=== PATIENT | female | born 1960 | race Hispanic/Latino ===

== ENCOUNTER 2024-04-22 10:09 | Emergency (ER) | payer OTHER ==
[~2024-04-22] VITALS: Ht 157.5 cm; Wt 56.7 kg
--- NOTE | 2024-04-22 10:16 | ERN ---
ED Note History of Present Illness Stated Complaint: DIZZINESS Chief Complaint: Dizzy/Light Headed Time Seen by MD: 10:13 Dictation: PATIENT IS A 63-YEAR-OLD FEMALE COMING IN TODAY WITH INTERMITTENT GENERALIZED HEADACHE WITH DIZZINESS ONSET ONE MONTH PRIOR TO ARRIVAL. NO FEVER NO CHILLS NO NAUSEA VOMITING. SHE ALSO STATES SHE HAS HAD BLURRED VISION INTERMITTENTLY HOWEVER SAW CIRCLE EDGER YESTERDAY WHO DILATED HER EYES AND THEN RECOMMENDED SHE GET A CT SCAN OF THE HEAD. NIH IS 0 AT THIS TIME. STATES THE PRIMARY CARE DOCTOR HAS DONE NOTHING ABOUT THE DIZZINESS OR HEADACHES. Allergies: Coded Allergies: No Known Drug Allergies (Unverified Allergy, Unknown, 04/22/24) Past Medical History History: Not Applicable RN Note Reviewed/Agreed w/PFSH: Yes Review of System Dictation CONSTITUTIONAL: NEGATIVE EXCEPT FOR HPI HEAD/FACE: NEGATIVE EXCEPT FOR HPI EENT: NEGATIVE EXCEPT FOR HPI RESPIRATORY: NEGATIVE EXCEPT FOR HPI GASTROINTESTINAL/ABDOMINAL: NEGATIVE EXCEPT FOR HPI GENITOURINARY: NEGATIVE EXCEPT FOR HPI MUSCULOSKELETAL: NEGATIVE EXCEPT FOR HPI INTEGUMENTARY: NEGATIVE EXCEPT FOR HPI NEUROLOGICAL/PSYCH: NEGATIVE EXCEPT FOR HPI DIZZINESS/HEADACHE HEMATOLOGIC/LYMPHATIC: NEGATIVE EXCEPT FOR HPI ALL SYSTEMS NEGATIVE, EXCEPT NOTED ABOVE. 13 POINT REVIEW OF SYSTEMS ASSESSED AND ALL NEGATIVE EXCEPT FOR ABOVE. Initial Vital Sign VS Vital Signs Date Time Temp Pulse Resp B/P (MAP) Pulse Ox O2 Delivery O2 Flow Rate FiO2 04/22/24 10:11 98.4 111 18 167/81 100 Room Air 04/22/24 12:10 0 21 Physical Exam Dictation VITAL SIGNS REVIEWED GENERAL APPEARANCE: ALERT, ORIENTED X 3, NO ACUTE DISTRESS, WELL DEVELOPED, NOURISHED. HEAD AND FACE: NON-TRAUMATIC. EYES: PERRL, PINK CONJUNCTIVAS, EYELID NO TRAUMA, ANTERIOR CHAMBER WITH ARCUS SENILIS. RIGHT VISUAL FIELD CUT, EOMS ARE INTACT EARS: PINNAS INTACT AND NO SIGNS OF TRAUMA OR ERYTHEMA EAR CANALS CLEAR AND NO DISCHARGE TM NO ERYTHEMA NOSE: NO DISCHARGE, NO BLEEDING. OROPHARYNX: MOUTH NORMAL, TONGUE PINK, PHARYNX CLEAR,NO ERYTHEMA, TONSILS NO EXUDATES, NO ABSCESSES NOTED, MUCOUS MEMBRANE MOIST NECK: SUPPLE, NON-TENDER, NO THYROMEGALY, NO MASSES, NO JVD, NO BRUITS BREAST:DEFERRED CHEST:NO TENDERNESS, NO CREPITUS, NO PARADOXICAL MOVEMENT, NO RETRACTIONS LUNGS:CLEAR, WELL-VENTILATED, SYMMETRIC, NO RALES, NO WHEEZING, NO RHONCHI, NO STRIDOR, GOOD BREATH SOUNDS BILATERALLY HEART: REGULAR RATE, REGULAR RHYTHM, NO MURMUR, NO GALLOPS VASCULAR: NO PERIPHERAL EDEMA, ABDOMEN: SOFT, POSITIVE BOWEL SOUNDS, NONDISTENDED, NO GUARDING, NONTENDER, NO REBOUND, NO MASSES NO HEPATOMEGALY, NO SPLENOMEGALY, NO MCKENNA'S SIGN, NO HERNIAS. RECTAL: DEFERRED GENITAL: DEFERRED NEUROLOGICAL: NORMAL SPEECH, MOTOR FUNCTION INTACT, SENSORY FUNCTION INTACT NIH IS 1 MUSCULOSKELETAL: NECK NONTENDER, FULL RANGE OF MOTION, BACK NONTENDER, FULL RANGE OF MOTION, EXTREMITIES: NONTENDER, FULL RANGE OF MOTION SKIN: COLOR PINK, DRY, NO TURGOR, NO RASH, NO LACERATIONS, NO ABRASIONS, NO CONTUSIONS. LYMPHATIC: DEFERRED Results (Laboratory/Radiology) Laboratory/Radiology Laboratory Tests Test 04/22/24 11:00 White Blood Count 6.9 K/uL (4.8-10.8) Red Blood Count 4.06 MIL/uL (4.00-5.50) Hemoglobin 12.6 g/dL (12.0-16.0) Hematocrit 37.1 % (36-48) Mean Corpuscular Volume 91.4 fL (79-99) Mean Corpuscular Hemoglobin 31.0 pg (27.0-33.0) Mean Corpuscular Hemoglobin Concent 34.0 g/dL (32.0-36.0) Red Cell Distribution Width 12.9 % (11.0-15.5) Platelet Count 345 K/uL (130-400) Mean Platelet Volume 11.5 fL (7.5-10.5) H Immature Granulocyte % (Auto) 0.1 % (0-1) Neutrophils (%) (Auto) 72.7 % (40.0-77.0) Lymphocytes (%) (Auto) 14.4 % (21.0-51.0) L Monocytes (%) (Auto) 5.8 % (3.0-13.0) Eosinophils (%) (Auto) 5.8 % (0.0-8.0) Basophils (%) (Auto) 1.2 % (0.0-5.0) Neutrophils # (Auto) 5.0 K/uL (1.8-7.7) Lymphocytes # (Auto) 1.0 K/uL (1.0-4.8) Monocytes # (Auto) 0.4 K/uL (0.1-1.0) Eosinophils # (Auto) 0.40 K/uL (0.00-0.70) Basophils # (Auto) 0.08 K/uL (0.00-0.20) Absolute Immature Granulocyte (auto 0.01 K/uL (0-1) Nucleated Red Blood Cells 0.0 % (0.0-0.19) Sodium Level 143 mmol/L (136-145) Potassium Level 3.6 mmol/L (3.5-5.1) Chloride Level 106 mmol/L (101-111) Carbon Dioxide Level 30 mmol/L (21-32) Blood Urea Nitrogen 16 mg/dL (7-18) Creatinine 0.8 mg/dL (0.5-1.0) Glomerular Filtration Rate Calc 82 mL/min (>90) Random Glucose 189 mg/dL (70-105) H Total Calcium 9.6 mg/dL (8.5-10.1) Magnesium Level 1.40 mg/dL (1.80-2.40) L Troponin I High Sensitivity 10 ng/L (4-50) CT HEAD/BRAIN W/O CONTRAST HISTORY: Headaches COMPARISON: None TECHNIQUE: Multiple sequential axial images of the head were obtained from the base of the skull through vertex. Patient was not given contrast through intravenous route. FINDINGS: The ventricles and extraventricular CSF spaces are dilated consistent with cerebral atrophy. Nonspecific white matter changes seen. There is subacute/chronic left occipital lobe infarct. There is no midline shift, mass effect or herniation. No acute intracranial bleed is seen. Visualized portion of the paranasal sinuses are grossly within normal limits. IMPRESSION: 1. No acute intracranial bleed is seen. 2. Atrophy with white matter changes. Subacute/chronic left occipital lobe infarct. Report was given to the emergency room physician. TECHNIQUE: CT angiography of the neck was performed. The study was performed using angiographic technique with maximum intensity projection reconstruction images. FINDINGS: There are degenerative changes of the cervical spine. Parapharyngeal fat planes are preserved bilaterally. The airway is patent. Normal enhancement of the thyroid gland is noted. Visualized portion of the lung apices are unremarkable. The common, internal and external carotid arteries are visualized. 40-60% stenosis in the bilateral internal carotid arteries with left worse than right. Both vertebral arteries are seen with antegrade flow. IMPRESSION: CTA Neck 1. Atherosclerotic disease. 40-60% stenosis in the bilateral internal carotid arteries with left worse than right. Labs Reviewed?: Yes EKG Comment: EKG SINUS RHYTHM/HEART RATE 87/AXIS NORMAL/NONSPECIFIC ST CHANGES IN ANTEROLATERAL LEADS ED Course ED Course Orders Procedure Category Date Status Time Ct Head/Brain W/O CT 04/22/24 Resulted Contrast 10:14 Acetaminophen 500mg PHA 04/22/24 Complete Tab (Tylenol 500mg T 10:30 Cbc With Differential LAB 04/22/24 Complete 10:35 Chest 1vw RAD 04/22/24 Resulted 10:35 12 Lead Ekg Tracing- EKG 04/22/24 Resulted Technical 10:35 Magnesium LAB 04/22/24 Complete 10:35 Troponin I High LAB 04/22/24 Complete Sensitivity 10:35 Basic Metabolic Panel LAB 04/22/24 Complete 10:35 Magnesium 2gm Premix PHA 04/22/24 Complete 50ml (Magnesium 2gm 12:00 Neurology Consult CONPHYSVC 04/22/24 Transmitted 12:21 Aspirin 325mg Tab PHA 04/22/24 Complete (Aspirin 325mg Tab) 13:00 Clopidogrel 75mg Tab PHA 04/22/24 Complete (Plavix 75mg) 13:00 Ct Angio Head And Neck CT 04/22/24 Resulted 12:35 Current Medications Medications (Trade) Dose Ordered Sig/Yael Route PRN Reason Start Time Stop Time Status Last Admin Dose Admin Acetaminophen (TYLenol 500MG TAB) 1,000 mg ONCE ONCE PO 04/22/24 10:30 04/22/24 10:31 DC Aspirin (Aspirin 325mg Tab) 325 mg ONCE ONCE PO 04/22/24 13:00 04/22/24 13:01 DC 04/22/24 13:01 Clopidogrel Bisulfate (plaVIX 75MG) 75 mg ONCE ONCE PO 04/22/24 13:00 04/22/24 13:01 DC 04/22/24 13:00 Magnesium Sulfate 50 ml @ 0 mls/hr PROTOCOL ONCE IV 04/22/24 12:00 04/22/24 12:01 DC 04/22/24 11:58 Vital Signs Date Time Temp Pulse Resp B/P (MAP) Pulse Ox O2 Delivery O2 Flow Rate FiO2 04/22/24 14:41 82 12 107/47 98 Room Air* 0 21 04/22/24 13:25 80 18 164/63 99 Room Air* 0 21 04/22/24 12:10 78 16 164/63 99 Room Air* 0 21 04/22/24 10:11 98.4 111 18 167/81 100 Room Air 1140/CALL PLACED TO /NEUROLOGIST. PATIENT HAS HAD A SUBACUTE LEFT OCCIPITAL INFARCTION, RECEIVED CALL FROM , RADIOLOGIST. LAST KNOWN WELL TIME WAS EARLY FEBRUARY SHE STATES WHEN SHE WAS AT A FOOTBALL GAME AT [employer] IN [place], WEEK OF FEBRUARY SHE HAD THE ONSET OF THE HEADACHE. 1215/SPOKE WITH /ED PHYSICIAN AND DISCUSSED CASE. NO NEED FOR AN SOC AT THIS TIME. PATIENT WILL BE ADMITTED TO THE HOSPITAL FOR A SUBACUTE LEFT OCCIPITAL INFARCTION AND RIGHT VISUAL FIELD CUT. PATIENT IS AWARE OF ADMISSION AND AGREES TO PROCEED. 1230/SPOKE WITH SHELLY/NEUROLOGY AND DISCUSSED CT FINDINGS AND PHYSICAL EXAM. HE SAID TO START PATIENT ON ASPIRIN 325, [id number] MG AND DO A CT ANGIOGRAM OF HEAD AND NECK. SAID DUE TO THE ONSET OF THE SYMPTOMS NO NEED FOR ADMISSION AT THIS TIME. GET THE CTA AND MAY DISCHARGED HOME TO FOLLOW UP WITH HIM OUTPATIENT 1545, CAROTID STENOSIS OF 40-60% GREATER ON THE LEFT SEEN ON CTA OF HEAD AND NECK. OPTIC ANEURYSM. DISCHARGED HOME WITH FOLLOW UP WITH DOCTORS HER DONE ON FRIDAY. HEART Score Response (Comments) Value EKG: Repolarization changes 1 Age: 45-65yrs (+1) 1 Risk Factors: 1-2 risk factors (+1) 1 Initial Troponin: Normal limit (0) 0 Total 3 Medical Decision Making MDM MDM: DIFFERENTIAL DIAGNOSIS: VISION CHANGES/CVA/INFARCTION/SUBDURAL HEMATOMA/ACS/AMI/URINARY TRACT INFECTION RATIONALE: TESTS CONSIDERED AND ORDERED SECONDARY TO SHARED DECISION MAKING INCLUDE: LABS, ECG AND RADIOLOGY ADDITIONALLY INCLUDED CTA HEAD AND NECK PREVIOUS OUTSIDE RECORDS REVIEWED: OLD ER VISITS. NONE RISK OF COMPLICATION AND/OR MORBIDITY OR MORTALITY OF PATIENT MANAGEMENT: NONE MEDICATIONS-PER MEDICATION RECONCILIATION NEED FOR HOSPITALIZATION: PATIENT DOES MEET CRITERIA FOR HOSPITALIZATION. PATIENT WILL BE ADMITTED FOR MANAGEMENT OF SUBACUTE OCCIPITAL INFARCTION AND FURTHER MANAGEMENT BY NEUROLOGY NEED FOR EMERGENCY MAJOR/MINOR SURGERY: NO THERE ARE NO SOCIAL CONCERNS WITH THIS PATIENT. PRESCRIPTION DRUG MANAGEMENT PRESCRIPTIONS WILL INCLUDE SYMPTOMATIC CARE NO CRITERIA FOR ADMISSION, SUBACUTE LEFT OCCIPITAL INFARCTION WITH CAROTID STENOSIS WE WILL REFERRED TO NEUROLOGIST FOR FOLLOW UP ON FRIDAY PATIENT'S PRIOR EXTERNAL MEDICAL RECORDS FROM OTHER ER VISITS WERE REVIEWED BY ME INDICATED. PRIOR TESTING AND RESULTS FROM PREVIOUS VISITS WERE REVIEWED. PRIOR TESTS WERE TAKEN INTO ACCOUNT WITH MEDICAL DECISION MAKING AND RESOURCE UTILIZATION, INDEPENDENT HISTORIAN/HISTORIANS WERE USED TO OBTAIN COMPLETE MEDICAL HISTORY. I INDEPENDENTLY INTERPRETED THE TEST THAT WERE PERFORMED, RESULTS WERE REVIEWED BY ME AND CONSIDERED FINDINGS ON RADIOLOGY IF ORDERED. MEDICAL MANAGEMENT AND EXAMINATION INTERPRETATION DISCUSSIONS WERE HAD BY ME WITH OTHER QUALIFIED HEALTHCARE PROFESSIONALS INDICATED FOR THE PATIENT'S CARE. DX & DISP Disposition: Discharge Departure Impression: Primary Impression: Occipital infarction Additional Impressions: Carotid stenosis, left, Carotid stenosis, right Condition: Stable Scripts Clopidogrel Bisulfate (Plavix) 75 Mg Tablet 1 TAB PO DAILY for 30 Days, #30 TAB 0 Refills Prov: CHENG UGALDE MODELING ANALYST 04/22/24 Aspirin (Aspirin) 81 Mg Tab.chew 1 TAB PO DAILY for 30 Days, #30 TAB 0 Refills Prov: CHENG UGALDE MODELING ANALYST 04/22/24 Additional Instructions: FOLLOW-UP WITH PRIMARY CARE PROVIDER IN 1 TO 2 DAYS. TAKE MEDICATIONS DIRECTED HERE IN THE EMERGENCY ROOM. OKAY TO CONTINUE HOME MEDICATIONS UNLESS OTHERWISE DISCUSSED DURING YOUR VISIT IN THE EMERGENCY ROOM TODAY. RETURN TO YOUR NEAREST EMERGENCY ROOM IF SYMPTOMS WORSEN OR IF THERE IS NO IMPROVEMENT. CALL 911 IF YOU NEED IMMEDIATE ASSISTANCE. TAKE TYLENOL OR MOTRIN OVER-THE-C OUNTER NEEDED AND IF NO CONTRAINDICATIONS ARE PRESENT. INCREASE ORAL HYDRATION. A WOUND CULTURE OR URINE CULTURE WAS ORDERED HERE IN THE EMERGENCY ROOM DEPARTMENT PLEASE FOLLOW-UP WITH PRIMARY CARE PROVIDER AND ADVISE THEM TO GET REPEAT PORTS FROM OUR FACILITY. IF YOU HAD ANY BROOKE WRAP/SPLINTS THAT WERE APPLIED HERE, PLEASE DO NOT REMOVE THEM UNTIL YOU SEE YOUR PRIMARY CARE OR SPECIALTY. TAKE PLAVIX AND ASPIRIN DIRECTED. CALL NEUROLOGIST OFFICE TOMORROW FOR AN APPOINTMENT ON FRIDAY Referrals: SELF,REFERRAL (PCP) TIMMY ALLEN MD Time of Disposition: 12:29 I have reviewed the case, and I agree with, Diagnosis and Plan CHENG UGALDE NP Apr 22, 2024 10:16
[2024-04-22] MEDS: acetaMINOPHEN 500 MG TABLET PO ONE (10:27)
[2024-04-22 11:19] LABS: BASOPHILS # (AUTO) 0.08 K/uL (0.00-0.20); BASOPHILS % (AUTO) 1.2 % (0.0-5.0); EOSINOPHILS % (AUTO) 5.8 % (0.0-8.0); HEMATOCRIT 37.1 % (36-48); IMMATURE GRANULOCYTE ABSOLUTE 0.01 K/uL (0-1); LYMPHOCYTES % (AUTO) 14.4 % (21.0-51.0); MEAN CORPUSCULAR VOLUME 91.4 fL (79-99); MONOCYTES # (AUTO) 0.4 K/uL (0.1-1.0); MONOCYTES % (AUTO) 5.8 % (3.0-13.0); NEUTROPHILS % (AUTO) 72.7 % (40.0-77.0); PLATELET COUNT (AUTO) 345 K/uL (130-400); RED BLOOD CELL COUNT(AUTO) 4.06 MIL/uL (4.00-5.50); RED CELL DISTRIBUTION WIDTH 12.9 % (11.0-15.5); WHITE BLOOD COUNT (AUTO) 6.9 K/uL (4.8-10.8)
--- NOTE | 2024-04-22 11:27 | HMCIMG ---
CT HEAD/BRAIN W/O CONTRAST HISTORY: Headaches COMPARISON: None TECHNIQUE: Multiple sequential axial images of the head were obtained from the base of the skull through vertex. Patient was not given contrast through intravenous route. FINDINGS: The ventricles and extraventricular CSF spaces are dilated consistent with cerebral atrophy. Nonspecific white matter changes seen. There is subacute/chronic left occipital lobe infarct. There is no midline shift, mass effect or herniation. No acute intracranial bleed is seen. Visualized portion of the paranasal sinuses are grossly within normal limits. IMPRESSION: 1. No acute intracranial bleed is seen. 2. Atrophy with white matter changes. Subacute/chronic left occipital lobe infarct. Report was given to the emergency room physician. CT was performed with one or more following dose reduction techniques: automated exposure control, adjustment of the mA and kv according to patient's size, or use of a iterative reconstruction technique.
--- NOTE | 2024-04-22 11:37 | EKG ---
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
[2024-04-22 11:42] LABS: CREATININE 0.8 mg/dL (0.5-1.0); MAGNESIUM 1.4 mg/dL (1.80-2.40); POTASSIUM 3.6 mmol/L (3.5-5.1)
--- NOTE | 2024-04-22 11:42 | HMCIMG ---
CHEST 1VW HISTORY: Chest pain COMPARISON: None FINDINGS: A frontal projection of the chest was obtained. No acute pulmonary infiltrates is seen. The heart is borderline enlarged. Degenerative changes are seen. Aortic calcifications are seen. IMPRESSION: 1. No acute pulmonary infiltrate is seen.
[2024-04-22] MEDS: MAGNESIUM 2GM PREMIX 50ML 50 ML IV ONE (11:58)
--- NOTE | 2024-04-22 12:26 | NUR ---
NEUROLOGY CONSULT: DR FREDERICK MADE AWARE OF CONSULT BY CHENG UGALDE NP
[2024-04-22] MEDS: cloPIDOgrel 75MG TAB PO ONE (13:00)
[2024-04-22] MEDS: ASPIRIN 325MG TAB PO ONE (13:01)
--- NOTE | 2024-04-22 13:50 | NUR ---
TO CT FOR ANGIO
--- NOTE | 2024-04-22 15:32 | HMCIMG ---
CT ANGIO HEAD AND NECK HISTORY: No additional history given. COMPARISON: None TECHNIQUE: CT angiography of the head was performed. The study was performed using angiographic technique with maximum intensity projection reconstruction images. Patient was given 100 cc of Omnipaque through intravenous route. FINDINGS: The ventricles and extraventricular CSF spaces are nondilated for patient's age. There is no midline shift, mass effect or herniation. No acute intracranial bleed is seen. Visualized portion of the paranasal sinuses are grossly within normal limits. No CT evidence of cerebral aneurysm or abnormal arteriovenous communication is seen. Diffuse atherosclerosis changes are present. Vertebrobasilar arterial system is grossly within normal limits. IMPRESSION: CTA Head 1. Atherosclerotic disease. Otherwise unremarkable CTA of the brain. TECHNIQUE: CT angiography of the neck was performed. The study was performed using angiographic technique with maximum intensity projection reconstruction images. FINDINGS: There are degenerative changes of the cervical spine. Parapharyngeal fat planes are preserved bilaterally. The airway is patent. Normal enhancement of the thyroid gland is noted. Visualized portion of the lung apices are unremarkable. The common, internal and external carotid arteries are visualized. 40-60% stenosis in the bilateral internal carotid arteries with left worse than right. Both vertebral arteries are seen with antegrade flow. IMPRESSION: CTA Neck 1. Atherosclerotic disease. 40-60% stenosis in the bilateral internal carotid arteries with left worse than right. CT was performed with one or more following dose reduction techniques: automated exposure control, adjustment of the mA and kv according to patient's size, or use of a iterative reconstruction technique.
[2024-04-22] MEDS ORDERED: ASPI-1197 PO (15:49)
[2024-04-22] MEDS ORDERED: CLOP-31 PO (15:49)
[2024-04-22 15:57] VITALS: BP 120/55; PULSE 69; RESP 12; TEMP 98.4; O2SAT 100
== END 2024-04-22 16:21 | disposition home or self-care (01) ==
LOC: EDH 10:09
DX: I63.9 Cerebral infarction, unspecified (principal); I65.23 Occlusion and stenosis of bilateral carotid arteries; Z79.02 Long term (current) use of antithrombotics/antiplatelets; Z86.73 Personal history of transient ischemic attack (TIA), and cerebral infarction without residual deficits
CPT/HCPCS: 99285; 83735; 84484; 80048; 85025; 36415; 71045; 70450; 70496; 70498; 96365; 96366; 93005; J3475

== ENCOUNTER → 2024-08-03 | Outpatient (CLI) | payer OTHER ==
[~2024-08-03] MED LIST: ASPI-1197 PO; CLOP-31 PO
--- NOTE | 2024-08-03 13:30 | NUR ---
MBSS COMPLETED (OUTPATIENT). No aspiration/ no penetrations. Recommend regular solids, thin liquids and pills whole with liquids as tolerated. Compensatory strategies: 1. sit upright during oral intake 2. extra dry swallows DIAGNOSTIC FINDINGS: Oropharyngeal swallowing is within functional limits. No penetrations or aspiration observed. Pt with mild pharyngeal residue cleared with re-swallows. Otherwise, exam was negative for etiology of patients c/o occasional globus sensation/choking with oral intake. WATER TEAM LEADER reviewed results and recommendations with patient. WATER TEAM LEADER educated patient on risks and consequences of aspiration. Speech therapy not warranted at this time. All questions answered. Addendum: 08/03/[address] LEYLA WANG Amended: Links added.
--- NOTE | 2024-08-03 16:11 | HMCIMG ---
MODIFIED BARIUM SWALLOW W CINE INDICATION: Dysphagia; Disease of esophagus, unspecified FINDINGS: Fluoroscopic assistance was provided to the speech pathologist while performing examination. For findings and dietary recommendations, refer to speech pathologist's report. FLUORO TIME: 2.8 minutes IMPRESSION: Modified barium swallow as described.
== END | disposition home or self-care (01) ==
LOC: RAH 12:30
PROVIDERS: ATTEND Family Medicine
DX: R13.10 Dysphagia, unspecified (principal); K22.9 Disease of esophagus, unspecified
CPT/HCPCS: 74230; 92611

== ENCOUNTER 2024-12-03 17:09 | Emergency (ER) | payer OTHER ==
[~2024-12-03] VITALS: Ht 160 cm; Wt 53.5 kg
[2024-12-03 18:20] LABS: IMMATURE GRANULOCYTE ABSOLUTE 0.02 K/uL (0-1); NUCLEATED RED BLOOD CELLS 0.0 % (0.0-0.19); PLATELET COUNT (AUTO) 301 K/uL (130-400); RED BLOOD CELL COUNT(AUTO) 4.48 MIL/uL (4.00-5.50); RED CELL DISTRIBUTION WIDTH 12.0 % (11.0-15.5); WHITE BLOOD COUNT (AUTO) 6.2 K/uL (4.8-10.8)
[2024-12-03 18:30] LABS: CREATININE 0.9 mg/dL (0.5-1.0); GLOMERULAR FILTR. RATE CALC 71.0 mL/min (>90); GLUCOSE,RANDOM 183.0 mg/dL (70-105); SODIUM SERUM 136.0 mmol/L (136-145); UREA NITROGEN, BLOOD 31.0 mg/dL (7-18)
[2024-12-03 18:43] LABS: CREATINE KINASE, TOTAL 64.0 U/L (21-232)
--- NOTE | 2024-12-03 19:37 | HMCIMG ---
EXAM: CR chest and right Rib, 6 View. CLINICAL HISTORY: r/o fx COMPARISON: None provided. FINDINGS: LUNGS: The visualized lungs appear essentially clear. Heart size and pulmonary vessels are within normal limits. PLEURAL SPACES: No evidence of pneumothorax. No pleural effusion. BONES: No visible acute rib fracture. IMPRESSION: No visible acute rib fracture. No pneumothorax. /[place]
[2024-12-03] MEDS: HYDROcodone/APAP 5/325 1 TAB TABLET PO SCH (19:43)
[2024-12-03] MEDS ORDERED: KETO10TA2 PO (19:52)
--- NOTE | 2024-12-03 19:53 | ERN ---
General Chief Complaint: Rib Pain Stated Complaint: RIGHT RIB PAIN Time Seen by MD: 17:15 Time Seen by Midlevel: 17:15 Source: patient History of Present Illness Initial Comments Patient is a 64-year-old female presenting with a right sided chest wall pain after she sustained a fall yesterday. Patient reports hitting the right side of her chest. Denies any other injury. Allergies: Coded Allergies: No Known Drug Allergies (Unverified Allergy, Unknown, 04/22/24) Home Meds Active Scripts Clopidogrel Bisulfate (Plavix) 75 Mg Tablet, 1 TAB PO DAILY for 30 Days, #30 TAB 0 Refills Prov:CHENG UGALDE [employer]ARD INSPECTOR 04/22/24 Aspirin (Aspirin) 81 Mg Tab.chew, 1 TAB PO DAILY for 30 Days, #30 TAB 0 Refills Prov:CHENG UGALDE [employer]OUSING [employer]AL[employer] STANDARD INSPECTOR 04/22/24 Past Medical History Past Medical History: Diabetes-Type II, High Cholesterol, Hypertension Past Surgical History: Other, Female( History) History: Not Applicable ROS Dictation CONSTITUTIONAL: NEGATIVE EXCEPT FOR HPI HEAD/FACE: NEGATIVE EXCEPT FOR HPI EENT: NEGATIVE EXCEPT FOR HPI RESPIRATORY: NEGATIVE EXCEPT FOR HPI GASTROINTESTINAL/ABDOMINAL: NEGATIVE EXCEPT FOR HPI GENITOURINARY: NEGATIVE EXCEPT FOR HPI MUSCULOSKELETAL: NEGATIVE EXCEPT FOR HPI INTEGUMENTARY: NEGATIVE EXCEPT FOR HPI NEUROLOGICAL/PSYCH: NEGATIVE EXCEPT FOR HPI HEMATOLOGIC/LYMPHATIC: NEGATIVE EXCEPT FOR HPI ALL SYSTEMS NEGATIVE, EXCEPT NOTED ABOVE. 13 POINT REVIEW OF SYSTEMS ASSESSED AND ALL NEGATIVE EXCEPT FOR ABOVE. Physical Exam Physical Exam Dictation VITAL SIGNS REVIEWED GENERAL APPEARANCE: ALERT, ORIENTED X 3, NO ACUTE DISTRESS, WELL DEVELOPED, NOURISHED. HEAD AND FACE: NON-TRAUMATIC. EYES: PERRL, PINK CONJUNCTIVAS, EYELID NO TRAUMA, ANTERIOR CHAMBER WITH ARCUS SENILIS. EARS: PINNAS INTACT AND NO SIGNS OF TRAUMA OR ERYTHEMA EAR CANALS CLEAR AND NO DISCHARGE TM NO ERYTHEMA NOSE: NO DISCHARGE, NO BLEEDING. OROPHARYNX: MOUTH NORMAL, TONGUE PINK, PHARYNX CLEAR,NO ERYTHEMA, TONSILS NO EXUDATES, NO ABSCESSES NOTED, MUCOUS MEMBRANE MOIST NECK: SUPPLE, NON-TENDER, NO THYROMEGALY, NO MASSES, NO JVD, NO BRUITS BREAST:DEFERRED CHEST: RIGHT-SIDED CHEST WALL TENDERNESS, NO CREPITUS, NO PARADOXICAL MOVEMENT, NO RETRACTIONS LUNGS:CLEAR, WELL-VENTILATED, SYMMETRIC, NO RALES, NO WHEEZING, NO RHONCHI, NO STRIDOR, GOOD BREATH SOUNDS BILATERALLY HEART: REGULAR RATE, REGULAR RHYTHM, NO MURMUR, NO GALLOPS VASCULAR: NO PERIPHERAL EDEMA, ABDOMEN: SOFT, POSITIVE BOWEL SOUNDS, NONDISTENDED, NO GUARDING, NONTENDER, NO REBOUND, NO MASSES NO HEPATOMEGALY, NO SPLENOMEGALY, NO MCKENNA'S SIGN, NO HERNIAS. RECTAL: DEFERRED GENITAL: DEFERRED NEUROLOGICAL: NORMAL SPEECH, MOTOR FUNCTION INTACT, SENSORY FUNCTION INTACT MUSCULOSKELETAL: NECK NONTENDER, FULL RANGE OF MOTION, BACK NONTENDER, FULL RANGE OF MOTION, EXTREMITIES: NONTENDER, FULL RANGE OF MOTION SKIN: COLOR PINK, DRY, NO TURGOR, NO RASH, NO LACERATIONS, NO ABRASIONS, NO CONTUSIONS. LYMPHATIC: DEFERRED Results Laboratory and Microbiology Lab and Micro Result Laboratory Tests Test 12/03/24 18:12 White Blood Count 6.2 K/uL (4.8-10.8) Red Blood Count 4.48 MIL/uL (4.00-5.50) Hemoglobin 13.9 g/dL (12.0-16.0) Hematocrit 40.8 % (36-48) Mean Corpuscular Volume 91.1 fL (79-99) Mean Corpuscular Hemoglobin 31.0 pg (27.0-33.0) Mean Corpuscular Hemoglobin Concent 34.1 g/dL (32.0-36.0) Red Cell Distribution Width 12.0 % (11.0-15.5) Platelet Count 301 K/uL (130-400) Mean Platelet Volume 10.6 fL (7.5-10.5) H Immature Granulocyte % (Auto) 0.3 % (0-1) Neutrophils (%) (Auto) 64.3 % (40.0-77.0) Lymphocytes (%) (Auto) 18.0 % (21.0-51.0) L Monocytes (%) (Auto) 10.3 % (3.0-13.0) Eosinophils (%) (Auto) 6.6 % (0.0-8.0) Basophils (%) (Auto) 0.5 % (0.0-5.0) Neutrophils # (Auto) 4.0 K/uL (1.8-7.7) Lymphocytes # (Auto) 1.1 K/uL (1.0-4.8) Monocytes # (Auto) 0.6 K/uL (0.1-1.0) Eosinophils # (Auto) 0.41 K/uL (0.00-0.70) Basophils # (Auto) 0.03 K/uL (0.00-0.20) Absolute Immature Granulocyte (auto 0.02 K/uL (0-1) Nucleated Red Blood Cells 0.0 % (0.0-0.19) Sodium Level 136 mmol/L (136-145) Potassium Level 3.9 mmol/L (3.5-5.1) Chloride Level 98 mmol/L (101-111) L Carbon Dioxide Level 30 mmol/L (21-32) Blood Urea Nitrogen 31 mg/dL (7-18) H Creatinine 0.9 mg/dL (0.5-1.0) Glomerular Filtration Rate Calc 71 mL/min (>90) Random Glucose 183 mg/dL (70-105) H Total Calcium 9.5 mg/dL (8.5-10.1) Magnesium Level 1.80 mg/dL (1.80-2.40) Total Creatine Kinase 64 U/L (21-232) Troponin I High Sensitivity 4 ng/L (4-50) Labs Reviewed?: Yes MDM MDM: DIFFERENTIAL DIAGNOSIS: RIB FRACTURES, PNEUMOTHORAX, CONTUSION THERE ARE NO SOCIAL CONCERNS WITH THIS PATIENT. PRESCRIPTION DRUG MANAGEMENT PRESCRIPTIONS WILL INCLUDE: TORADOL MEDICAL MANAGEMENT AND EXAMINATION INTERPRETATION DISCUSSIONS WERE HAD BY ME WITH OTHER QUALIFIED HEALTHCARE PROFESSIONALS INDICATED FOR THE PATIENT'S CARE. ED Course Orders Procedure Category Date Status Time 12 Lead Ekg Tracing- EKG 12/03/24 Logged Technical 17:29 Cbc With Differential LAB 12/03/24 Complete 17:29 Basic Metabolic Panel LAB 12/03/24 Complete 17:29 Magnesium LAB 12/03/24 Complete 17:29 Troponin I High LAB 12/03/24 Complete Sensitivity 17:29 Creatine Kinase, Total LAB 12/03/24 Complete 17:29 Ribs Uni Rt W Pa RAD 12/03/24 Resulted Chest 3+ Vws 17:29 Hydrocodone/Apap PHA 12/03/24 In Process 5325 ([place] 5/325mg) 20:00 Current Medications Medications (Trade) Dose Ordered Sig/Yael Route PRN Reason Start Time Stop Time Status Last Admin Dose Admin Acetaminophen/ Hydrocodone Bitart (NORco 5/325MG) 1 tab ONCE PO 12/03/24 20:00 12/03/24 23:59 12/03/24 19:43 Vital Signs Date Time Temp Pulse Resp B/P (MAP) Pulse Ox O2 Delivery O2 Flow Rate FiO2 12/03/24 17:10 97.7 94 16 122/70 98 Room Air DX & DISP Disposition: Discharge Departure Impression: Primary Impression: Chest wall contusion Condition: Stable Scripts Ketorolac Tromethamine (Ketorolac Tromethamine) 10 Mg Tablet 1 TAB PO BID for pain for 5 Days, #10 TAB 0 Refills Prov: TURNER PENA 12/03/24 Additional Instructions: Your x-rays do not show any evidence of a rib fracture or a collapsed lung. I have given you pain medications for next couple of days. Follow up with primary care doctor in 2-3 days for repeat evaluation. Referrals: GABBY GOSS DO (PCP) I have reviewed the case, and I agree with, Diagnosis and Plan I performed the substantive portion of the visit. I have reviewed and personally made and approve the management plan that is documented in the note by myself or the DIEGO. I acknowledge for responsibility for the patient's management plan. TURNER PENA Dec 03, 2024 19:53
--- NOTE | 2024-12-03 20:04 | EKG ---
[facility] Test Date: 2024-12-03 Test Time: 17:45:04 Pat Name: ANN MARIE LOUIS Department: ED Room: Gender: F Manager Pricing: [id number] : [id number] Requested By: TURNER PENA Order Number: [id number] Reading MD: Ying Arteaga Measurements Intervals [place] Rate: 103 P: 74 [place]: 117 QRS: -29 QRSD: 74 T: 58 QT: 346 QTc: 453 Interpretive Statements Sinus tachycardia Probable anteroseptal infarct, old Compared to ECG 04/22/2024 10:52:06 Sinus rhythm no longer present Myocardial infarct finding still present Electronically Signed On 12-06-2024 12:39:13 CDT by Ying Arteaga Please click the below link to view image of tracing.
[2024-12-03 20:16] VITALS: BP 120/65; PULSE 58; RESP 16; TEMP 97.9; O2SAT 100
== END 2024-12-03 20:25 | disposition home or self-care (01) ==
LOC: EDH 17:09
DX: S20.211A Contusion of right front wall of thorax, initial encounter (principal); E11.9 Type 2 diabetes mellitus without complications; E78.00 Pure hypercholesterolemia, unspecified; I10 Essential (primary) hypertension; Z79.02 Long term (current) use of antithrombotics/antiplatelets; Z79.82 Long term (current) use of aspirin; Z98.890 Other specified postprocedural states; W18.39XA Other fall on same level, initial encounter; Y93.89 Activity, other specified; Y92.89 Other specified places as the place of occurrence of the external cause; Y99.8 Other external cause status
CPT/HCPCS: 36415; 71101; 80048; 82550; 83735; 84484; 85025; 93005; 99285